=== PATIENT | male | born 1970 | race Caucasian/White ===

== ENCOUNTER 2025-08-21 07:55 | Outpatient (CLI) | payer MEDICAID, SELFPAY ==
--- OUTSIDE RECORDS SUMMARY | 2025-08-21 07:57 | XMS_ITS | Clinical Summary ---
Author Organization [facility] Address [address] [place] [address] Care Team Providers Care Medical Office Asst Name Role Phone Norma Weaver MD Primary Care Provider [phone] Allergies Active Allergy Reactions Criticality Noted Date Comments Metoclopramide Unknown - Patient st ates they do not know rxn details Low 06/06/2017 Tramadol Unknown - Patient st ates they do not know rxn details Low 08/10/2017 Medications albuterol 108 (90 Base) MCG/ACT inhaler Acti ve budesonide-form oterol (Symbicort) 160-4.5 MCG/ACT inhaler Rinse mouth with water after use to reduce aftertaste and incidence of candidiasis. Do not swallow. Active albuterol 1.25 MG/3ML nebulizer solution Active Active Problems Problem Noted Date Diagnosed Date Chemical conjunctivitis of right eye 07/19/2021 Status post right cataract extraction 06/09/2021 Status post left cataract extraction 05/26/2021 H/O acute angle-closure glaucoma 02/01/2021 Anatomical narrow angle of both eyes 10/20/2017 Cervical spinal stenosis 08/10/2017 Cervical myelopathy 08/10/2017 Neuropathy, peripheral 08/10/2017 Resolved Problems Problem Noted Date Diagnosed Date Resolved Date Age-related nuclear cataract of right eye 02/01/2021 06/09/2021 Age-related nuclear cataract of left eye 02/01/2021 06/02/2021 Hypermetropia of both eyes 03/07/2018 0 07/22/2025 Bilateral presbyopia 03/07/2018 025 Family History Medical History Relation Name Comments COPD Father Asthma Mother COPD Mother Migraines Other Malig Hypertension Neg Hx Relation Name Status Comments Father Mother Other Social History Tobacco Use Types Packs/Day Years Used Date Smoking Tobacco: Every Day Cigarettes Smokeless Tobacco: Never Tobacco Cessation:Ready to Q uit: Yes; Counseling Given: No Alcohol Use Standard Drinks/Week Comments No 0 (1 standard drink = 0.6 oz pur e alcohol) Sex and Gender Information Value Date Recorded Sex Assigned at Not on file Legal Sex Male 7:46 PM EDT Gender Identity Not on file Sexual Orientation Not on file Last Filed Vital Signs Vital Sign Reading Time Taken Comments Blood Pressure 118/72 06/09/2021 12:25 PM EDT Pulse 66 06/09/2021 12:25 PM EDT Temperature 36.3 C (97.3 F) 06/09/2021 12:20 PM EDT Respiratory Rate 16 06/09/2021 12:2 0 PM EDT Oxygen Saturation 96% 06/09/2021 12: 30 PM EDT Inhaled Oxygen Concentration - - Weight 56.1 kg (123 lb 10.9 oz) 06/09/2021 9:56 AM EDT Height 165.1 cm (5' 5 ) 06/09/2021 9:56 AM EDT Body Mass Index 20.58 06/09/2021 9:56 AM EDT Plan of Treatment Health Maintenance Due Date Last Done Comments [facility]-Depression Screening 1970 [facility]-Infant/Child/Adol SDOH Screenings 1970 [facility]- SDOH Screenings 1988 [facility]-Adult SDOH Screenings 1988 [facility]-DTaP,Tdap,and Td Vaccine s (1 - Tdap) 1989 [facility]-Hepatitis B Vaccines (1 of 3 - 19+ 3-dose series) 1989 CT Colonography 2015 Colonoscopy 2015 FIT-DNA 2015 FIT 2015 FOBT 2015 Sigmoidoscopy 2015 [facility]-Colorectal Cancer Screening 2015 [facility]-Pneumococcal Vaccine: 50 + Years (1 of 1 - PCV) 2020 [facility]-Zoster Vaccines (1 of 2) 2020 UAQ-BRAQZ-30 Vaccine (1 - 20 24-25 season) 2025 [facility]-Influenza Vaccine (#1) 2025 HPV Vaccines Aged Out No longer eligi ble based on patient's age to complete this topic [facility]-HIB Vaccines Aged Out No longer e ligible based on patient's age to complete this topic [facility]-Hepatitis A Vaccines Aged Out No longer eligible based on patient's age to complete this topic [facility]-IPV Vaccines Aged Out No longer e ligible based on patient's age to complete this topic [facility]-Rotavirus Vaccines Aged Out No lo nger eligible based on patient's age to complete this topic Medical Devices Implanted Type Area Senior Clinical Consultant Device Identifier Shelf Expiration Date Model / Serial / Lot Lens Sn60at 33.0 - [id number] - [id number] Implanted:Qty: 1 on 05/26/2021 by Latoya Asencio MD at [facility] Lens Left: [id number] 08/26/2025 [id number] / [id number] / Lens Sn60at 32.0 - [id number] - [id number] Implanted:Qty: 1 on 06/09/2021 by Latoya Asencio MD at [facility] Right: [employer]-[id number] 12/05/2025 [id number] / [id number] / Insurance [employer] [place] Care Teams Medical Office Asst Relationship Specialty Start Date End Date Norma Weaver MD [facility] - General 03/14/21
--- OUTSIDE RECORDS SUMMARY | 2025-08-21 07:57 | XMS_ITS | Clinical Summary ---
Author Organization [facility] Address [address] [place] [address] Phone Care Team Providers Care Tube Molder Fiberglass Name Role Phone Unavailable Primary Care Provider Unavailabl e Allergies No known active allergies Medications HYDROcodone-acet aminophen (NORCO) 5-325 mg Oral Tablet Take 1 tablet by mouth every 6 hours as needed for Pain for up to 10 doses. 10 tablet 0 08/03/2014 Active Surgical History Surgery Date Site/Laterality Comments ABDOMEN SURGERY ulcer perferation Social History Tobacco Use Types Packs/Day Years Used Date Smoking Tobacco: Every Day Cigarettes Alcohol Use Standard Drinks/Week Comments No 0 (1 standard drink = 0.6 oz pur e alcohol) Sex and Gender Information Value Date Recorded Sex Assigned at Not on file Legal Sex Male 6:44 PM EDT Gender Identity Not on file Sexual Orientation Not on file Last Filed Vital Signs Vital Sign Reading Time Taken Comments Blood Pressure 122/81 08/03/2014 8:39 PM EDT Pulse 68 08/03/2014 8:39 PM EDT Temperature 36.8 C (98.3 F) 08/03/2014 6:50 PM EDT Respiratory Rate 16 08/03/2014 8:39 PM EDT Oxygen Saturation 97% 08/03/2014 8:39 PM EDT Inhaled Oxygen Concentration - - Weight 58.1 kg (128 lb) 08/03/2014 6:50 PM EDT Height - - Body Mass Index - - Plan of Treatment Health Maintenance Due Date Last Done Comments Annual Wellness Exam 1973 DTaP/TDaP/Td (1 - Tdap) 1989 Hepatitis B Vaccine (1 of 3 - 19+ 3-dose series) 1989 Cologuard 2015 Colon Cancer Screening 2015 Colonoscopy 2015 FIT 2015 Sigmoidoscopy 2015 Virtual Colonography 2015 Pneumococcal Vaccine 50+ (1 of 1 - PCV) 2020 Zoster (1 of 2) 2020 COVID-19 Vaccine (1 - 2024-2 6 season) 2025 Influenza Vaccine (#1) 2025 Meningococcal B Vaccine Aged Out No l onger eligible based on patient's age to complete this topic
--- NOTE | 2025-08-21 08:00 | CT_ITS ---
FINAL REPORT CLINICAL HISTORY: lung cancer screening smoker, 1 ppd x 38 years COMPARISON: None FINDINGS: CT CHEST LOW DOSE SCREENING HISTORY: Screening exam for lung cancer. DOSE: CTDI vol: 2.90 mGy, DLP: 122.98 mGy*cm TECHNIQUE: Axial CT without IV contrast administration using low dose protocol. This study was performed with techniques to keep radiation doses as low as reasonably achievable, (ALARA). Individualized dose reduction techniques using automated exposure control or adjustment of mA and/or kV according to the patient's size were employed. Underlying changes of emphysema are present. No pulmonary lesions are seen suspicious for neoplasm. No pleural or pericardial effusion is seen. No adenopathy or mass lesion is present. Calcified plaque is noted in the coronary arteries. IMPRESSION: Underlying emphysema, without pulmonary nodules identified. LUNG RADS CATEGORY 1 RECOMMENDATION: 12 month LDCT follow up Reviewed, Interpreted and Dictated by Inez Kruse MD Transcribed by Kathie Brandt Authenticated and [facility]
== END 2025-08-21 23:59 | disposition home or self-care (01) ==
LOC: RAD 07:56
PROVIDERS: PCP Family Medicine; Visit Provider Family Medicine
DX: J44.9 Chronic obstructive pulmonary disease, unspecified (principal); J43.9 Emphysema, unspecified; F17.210 Nicotine dependence, cigarettes, uncomplicated; Z12.2 Encounter for screening for malignant neoplasm of respiratory organs
CPT/HCPCS: 71271

== ENCOUNTER 2025-09-11 11:34 | Outpatient (CLI) | payer MEDICAID, SELFPAY ==
--- NOTE | 2025-09-11 | CA_ITS ---
APPROVED REPORT Exam: Pharmacologic Technologist: Danw Du Ht: 5 ft 3 in Wt: 127 lbs BSA: 1.59 m2 HR: 99 bpm BP: 146/69 mmHg Rhythm: Sinus Rhythm Indications: Chest Pain and Dyspnea Medical History Medical History: Smoking Medications: Albuterol, Prednisone, Sulfamethoxazole-Trimethoprin Allergies: Metoclopramide, Tramadol Cardiac Risk Factors: Smoking Stress Test Details Test: Lexiscan HR Resting HR: 99 bpm Max Heart Rate (APMHR): 165.370060 bpm Target HR (85% APMHR): 140.830100 bpm Recovery HR: 89 bpm BP Resting BP: 146.0/69.0 mmHg Max BP: 162.0/77.0 mmHg Recovery BP: 150.0/81.0 mmHg ECG Resting ECG: Sinus Rhythm Stress ECG Conclusion Patients lungs during ausciltation had rhonci anterior left No symptoms PAC/PVC noted Less than 0.5mm upsloping ST segment changes Non-diagnostic ECG/Lexiscan Electronically signed by : Lolis Aguero MD 09/23/2025 23:21:39
--- OUTSIDE RECORDS SUMMARY | 2025-09-11 11:37 | XMS_ITS | Clinical Summary ---
Author Organization [facility] Address [address] [place] [address] Care Team Providers Care Construction Project Administrator Name Role Phone Norma Weaver MD Primary Care Provider [phone] Allergies Active Allergy Reactions Criticality Noted Date [...] Date Last Done Comments [facility]-Depression Screening 1970 [facility]-/Child/Adol SDOH Screenings 1970 [facility]- SDOH Screenings 1988 [...] 2020 [facility]-Zoster Vaccines (1 of 2) 2020 [id number] Vaccine (1 - 20 24-25 season) 2025 [...] this topic Medical Devices Implanted Type Area Director Of Instruction Device Identifier Shelf Expiration Date Model / Serial / Lot Lens Sn60at 33.0 - [id number] - [id number] Implanted:Qty: 1 on 05/26/2021 by Latoya Asencio MD at [facility] Lens Left: [employer]-[id number] 08/26/2025 [id number] / [id number] / Lens Sn60at 32.0 - [id number] - [id number] Implanted:Qty: 1 on 06/09/2021 by Latoya Asencio MD at [facility] Right: [employer]-[id number] 12/05/2025 [id number] / [id number] / Insurance [employer] [place] Care Teams Construction Project Administrator Relationship Specialty Start Date End Date Norma Weaver MD [facility] - General 03/14/21
--- OUTSIDE RECORDS SUMMARY | 2025-09-11 11:37 | XMS_ITS | Clinical Summary ---
Author Organization [facility] Address [address] [place] [address] [place] [address] Phone Care Team Providers Care Potato Inspector Name Role Phone Unavailable Primary Care Provider [...]
--- NOTE | 2025-09-11 12:00 | NM_ITS ---
APPROVED REPORT Exam: Nuclear Stress Test Indication: cp..soa Patient Location: Outpatient Stress Tech: Dawn DOWNS Tech:Lucia Jacobson, ARRT, RT (R)(N) Ht: 5 ft 5 in Wt: 125 lbs HR: 94 bpm BP: 169/70 mmHg BSA: 1.62 m2 TID: 1.02 BMI: 20.7 History: cp..soa Procedure: Patient received 0.4 mg of intravenous Lexiscan, resting heart rate 94 bpm, resting blood pressure 169/70 mmHg, with Lexiscan maximum heart rate achieved was 92 bpm which is 85 % of the maximum predicted heart rate and blood pressure was 140/80 mmHg. With Lexiscan, patient denied any complaint of chest pain. Cardiac Stress and Resting SPECT Images: Cardiac Stress and Resting SPECT images were obtained using technetium 99m Myoview 32.6 mCi stress and 10.59 mCi at rest. Resting and stress imaging in supine and prone positions demonstrate a medium sized, mild, partially reversible perfusion defect in the basal to mid inferior and inferoseptal LV baer. Gated imaging demonstrates mild reduction in global LV systolic function. LVEF is calculated at 47%. Conclusion: Medium sized, mild, partially reversible perfusion defect in the basal to mid inferior and inferoseptal LV baer. Gated imaging demonstrates mild reduction in global LV systolic function. LVEF is calculated at 47%. Electronically signed by : Lolis Aguero MD 09/15/2025 01:59:39
[2025-09-11 13:10] VITALS: BP 146/69; PULSE 99; RESP 16
[2025-09-11] MEDS: ISOTOPE MYOVIEW (PER STUDY) 1 DOSE IV (13:39)
[2025-09-11] MEDS: SODIUM CHLORIDE 0.9% 10ML SYR (RAD ONLY) 10 ML IV ×2 (13:39)
--- NOTE | 2025-09-11 14:30 | CA_ITS ---
APPROVED REPORT EXAM: Comprehensive 2D, Doppler, and color-flow Echocardiogram Customs Brokerage Agent: Aliza France RDCS Ht: 5 ft 3 in Wt: 127lbs BSA: 1.59 BP: 142/77 mmHg Indications: CP TDS APICAL VIEWS SECONARY COPD/SMOKER M-Mode Dimensions RVDd 1.51 cm (0.9-2.6) LA Diam 2.04 cm (1.9-4.0) LVDd 5.05 cm (3.5-5.7) LVDs 3.80 cm (3.5-5.7) IVSd 0.66 cm (0.6-1.1) PWd 0.50 cm (0.6-1.1) EF (Teich) 48.80% FS 24.80% EDV (Teich) 121.00 mL ESV (Teich) 62.00 mL Left Ventricle The left ventricle is normal size. Left ventricular systolic function is normal. The left ventricular ejection fraction is within the normal range. There is normal left ventricular wall thickness. There is normal LV segmental wall motion. The left ventricular diastolic function is normal. LVEF is 55% Right Ventricle The right ventricle is normal size. The right ventricular systolic function is normal. Atria The left atrium size is normal. The right atrium size is normal. There is no color Doppler evidence of interatrial shunt. Aortic Valve The aortic valve opens well. There is no hemodynamically significant aortic valvular stenosis. No aortic regurgitation is present. Mitral Valve The mitral valve is normal in structure. No evidence of mitral valve stenosis. Trace mitral regurgitation is present. Tricuspid Valve The tricuspid valve leaflets are thin and pliable. Trace tricuspid regurgitation. There is insufficient TR jet to estimate RVSP. Pulmonic Valve The pulmonary valve is grossly normal in structure. Trace pulmonic valve regurgitation is present. Great Vessels The aortic root is normal in size. IVC is normal in size and collapses >50% with inspiration. Pericardium There is no pericardial effusion. Other Information Study Quality: Fair Conclusion Normal biventricular systolic function. No significant valvular stenosis or regurgitation. Electronically signed by : Lolis Aguero MD 09/19/2025 13:24:50
== END 2025-09-11 23:59 | disposition home or self-care (01) ==
LOC: RAD 11:35
PROVIDERS: PCP Family Medicine; Visit Provider Nurse Practitioner Family
DX: I49.1 Atrial premature depolarization (principal); I49.3 Ventricular premature depolarization; I25.10 Atherosclerotic heart disease of native coronary artery without angina pectoris; J44.9 Chronic obstructive pulmonary disease, unspecified; F17.200 Nicotine dependence, unspecified, uncomplicated; R94.39 Abnormal result of other cardiovascular function study
CPT/HCPCS: 78452; 93017; 93018; 93306; A9502; J2785

== ENCOUNTER 2025-10-16 08:00 | Day surgery (SDC) | payer MEDICAID, SELFPAY ==
[2025-10-16] VITALS (11 sets, daily range): BP systolic 93–143; BP diastolic 47–90; PULSE 56–69; RESP 18–20; O2SAT 96–99; BMI 21.9
--- NOTE | 2025-10-16 07:12 | IR_ITS ---
APPROVED REPORT Patient Location: Outpatient Integration Assistant: JAVIER Morales RT (R) PROCEDURES Left heart catheterization Left ventriculogram Selective coronary angiogram INDICATION Abnormal Myoview, Angina pectoris, Inferior ischemia Informed consent was obtained prior to the procedure. COMPLICATIONS NONE Estimated Blood Loss: LESS THAN 10 ML TECHNIQUE One percent lidocaine was used to anesthetize the right anterior aspect of the right wrist. The right radial artery was accessed via the Seldinger technique and a 6 Mauritian hydrophilic sheath was placed in the right radial artery. Following this one percent lidocaine was used to anesthetize the right anterior aspect of the right neck. The right internal jugular vein was accessed via the Seldinger technique and a 7 Mauritian sheath was placed in the right internal jugular vein. Following this an arterial cocktail was administered using 5000U heparin, 2.5 mg verapamil, 1mg Lidocaine and 800mcg nitroglycerin into the right radial sheath. A JL3 catheter was used to perform left heart catheterization left ventriculogram and selective coronary angiography while a [place]Car[place] catheter was used to perform right heart catheterization. Saturations were obtained in the pulmonary artery and right atrium. At the end of the procedure the arterial sheath was removed good hemostasis was achieved using Traclet band. Patient was transferred to the postop holding area in stable condition for venous sheath removal. ANGIOGRAPHIC RESULTS The left main artery Normal The left anterior descending artery Has proximal 30% stenosis in the mid vessel 30 to 40% stenosis The circumflex artery Is codominant gives rise to a large ramus intermedius which is still only 2 mm in diameter and has a proximal eccentric 70% stenosis followed by an additional mid vessel 50% stenosis. The circumflex artery itself has 10% luminal regularities The right coronary artery Is codominant and has proximal 30 and 40% stenosis with a mid vessel concentric 50 to 60% stenosis The FELDMAN ventriculogram reveals Normal 65% The left ventricular end-diastolic pressure 10 mmHg IMPRESSION Severe coronary disease and a large 2 mm ramus intermedius Moderate to severe disease and a 2 mm mid codominant right coronary artery Normal ejection fraction Normal LVEDP PLAN 1. For the time being I recommend medical management for coronary artery disease. Patient has small caliber coronary arteries and continues to smoke. 2 mm stents could be placed in the ramus intermedius and the right coronary artery however patient is only on 1 antianginal medication. Will add Imdur 30 mg daily and strongly encouraged patient to discontinue tobacco products 2. After patient has been on 2 antianginal medications and should his angina pectoris be recalcitrant only then would I consider revascularizing the ramus intermedius and the right coronary artery. Smoking cessation would significantly improve angina 3. Aggressive risk factor modification 4. Close follow-up with patient to determine if medical management can alleviate angina Electronically signed by : Kiran Mistry MD 10/16/2025 12:13:24
[2025-10-16 08:40] LABS: Chloride 104 mmol/L (98-107); Potassium 4.0 mmoL/L (3.5-5.1); Sodium 136 mmol/L (136-145)
[2025-10-16 08:43] LABS: Anion Gap 9.0 mEq/L (5-15); Blood Urea Nitrogen 18 mg/dl (9-20); Carbon Dioxide 27 mmol/L (22.0-30.0); Creatinine Clearance Estimated 51 mL/min (50-200); Creatinine,Serum 1.30 mg/dl (0.66-1.25); Estimated Glomerular Filt Rate 57 ml/min (>60); GFR (African American) 69 ML/MIN (>60)
[2025-10-16 08:44] LABS: Calcium 9.2 mg/dl (8.4-10.2); Glucose 110 mg/dl (74-100)
[2025-10-16 08:58] LABS: Hematocrit 45.7 % (42.0-52.0); Hemoglobin 15.6 g/dL (14.1-18.0); Immature Granulocytes % 0.2 %; Mean Corpuscular HGB Conc 34.1 g/dL (31.8-35.4); Mean Corpuscular Hemoglobin 30.8 pg (27.0-31.2); Mean Corpuscular Volume 90.3 fl (80-94); Nucleated Red Blood Cells % 0 %; Platelet Count 287 K/mm3 (142-424); Red Blood Count 5.06 M/mm3 (4.60-6.20); Red Cell Distribution Width-SD 44.7 fL; White Blood Count 9.4 K/mm3 (4.8-10.8)
[2025-10-16] MEDS: 0.9 % SODIUM CHLORIDE 500 ML 25 ML IV (09:25)
[2025-10-16] MEDS: NITROGLYCERIN 800MCG/8ML SYR (CATH LAB) 800 MCG IA (09:25)
[2025-10-16] MEDS: LIDOCAINE 1% 10ML MDV 10 ML IJ (09:25)
[2025-10-16] MEDS: HEPARIN 1,000 UNITS/ML 10ML VIAL (CATH LAB) 5000 UNIT IV (09:26)
[2025-10-16] MEDS: HEPARIN 1,000 UNITS/500ML NS (CATH LAB) 3000 UNIT IV (09:26)
[2025-10-16] MEDS: VERAPAMIL 2.5MG/ML 2ML VIAL 2.5 MG IV (09:26)
[2025-10-16] MEDS: FENTANYL 100MCG/2ML VIAL 50 MCG IV (10:03)
[2025-10-16] MEDS: MIDAZOLAM HCL 1MG/ML 5ML VIAL 1 MG IV (10:03)
== END 2025-10-16 13:09 | disposition home or self-care (01) ==
LOC: CATHLAB 08:01
PROVIDERS: PCP Family Medicine; Visit Provider Internal Medicine
PROC: 4A023N7 Measurement of Cardiac Sampling and Pressure, Left Heart, Percutaneous Approach (ICD-10-PCS; CPT 93452; principal; 2025-10-16 07:30)
DX: I25.119 Atherosclerotic heart disease of native coronary artery with unspecified angina pectoris (principal); R94.39 Abnormal result of other cardiovascular function study; R94.31 Abnormal electrocardiogram [ECG] [EKG]; J44.9 Chronic obstructive pulmonary disease, unspecified; F17.210 Nicotine dependence, cigarettes, uncomplicated; Z79.82 Long term (current) use of aspirin; Z79.899 Other long term (current) drug therapy; Z88.8 Allergy status to other drugs, medicaments and biological substances
CPT/HCPCS: 80048; 85025; 93458; 99152; C1769; C1887; J1200; J1644; J3010; J7040; Q9967